=== PATIENT | male | born 1960 | race Hispanic/Latino ===

== ENCOUNTER → 2022-12-01 | Outpatient (CLI) | payer OTHER ==
[~2022-12-01] MED LIST: METO25TA6 PO; SITA1TAB6 PO
== END | disposition home or self-care (01) ==
LOC: OIH 11:19
PROVIDERS: ATTEND Family Medicine
DX: R93.1 Abnormal findings on diagnostic imaging of heart and coronary circulation (principal)
CPT/HCPCS: 75571

== ENCOUNTER 2023-02-15 14:54 | Emergency (ER) | payer BC, OTHER ==
[~2023-02-15] VITALS: Ht 162.6 cm; Wt 72.1 kg
[2023-02-15] MEDS ORDERED: KETOROLAC 60 MG VIAL (30MG/ML) IM ONE (17:00)
[2023-02-15 18:00] VITALS: BP 138/80; PULSE 102; RESP 19; O2SAT 97
[2023-02-15] MEDS ORDERED: METH4TAB3 PO (18:44)
[2023-02-15] MEDS ORDERED: CYCL5TAB PO (18:44)
[2023-02-15] MEDS ORDERED: ACET-2079 PO (18:44)
[2023-02-15] MEDS ORDERED: NAPR-1023 PO (18:44)
[2023-02-15] MEDS ORDERED: LIDO1ADH71 TP (18:44)
== END 2023-02-15 19:02 | disposition home or self-care (01) ==
LOC: EDH 14:54
DX: S33.5XXA Sprain of ligaments of lumbar spine, initial encounter (principal); E11.9 Type 2 diabetes mellitus without complications; I10 Essential (primary) hypertension; V89.2XXA Person injured in unspecified motor-vehicle accident, traffic, initial encounter; Y93.89 Activity, other specified; Y92.89 Other specified places as the place of occurrence of the external cause; Y99.8 Other external cause status
CPT/HCPCS: 99284; 72100; 96372; J1885

== ENCOUNTER 2024-12-09 13:50 | Emergency (ER) | payer BC ==
[~2024-12-09] VITALS: Ht 162.6 cm; Wt 67.1 kg
[~2024-12-09 13:50] MED LIST changes: +ACET-2079 PO; +CYCL5TAB3 PO; +LIDO1ADH71 TP; +METH4TAB3 PO; +NAPR-1194 PO
--- NOTE | 2024-12-09 14:09 | EKG ---
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
[2024-12-09 14:16] LABS: IMMATURE GRANULOCYTE ABSOLUTE 0.02 K/uL (0-1); NUCLEATED RED BLOOD CELLS 0.0 % (0.0-0.19); PLATELET COUNT (AUTO) 268 K/uL (130-400); RED BLOOD CELL COUNT(AUTO) 4.95 MIL/uL (4.50-6.20); RED CELL DISTRIBUTION WIDTH 13.1 % (11.0-15.5); WHITE BLOOD COUNT (AUTO) 7.4 K/uL (4.8-10.8)
--- NOTE | 2024-12-09 14:29 | ERN ---
ED Note History of Present Illness Stated Complaint: COUGH, BLOOD STREAKED SPUTUM Chief Complaint: Cough Time Seen by MD: 13:52 Dictation: Patient is a 64-year-old male coming in today with complaints of blood-tinged sputum without fever chills nausea vomiting started 2-3 days. He denies any history of tobacco abuse he saw his primary care doctor last week and told him about the same complaint and the doctor was more focused on the other concerns and did not say anything about his cough with the phlegm. He did suggest to the patient that maybe allergies only. Patient would like an appropriate opinion. Allergies: Coded Allergies: No Known Drug Allergies (Unverified Allergy, Unknown, 07/15/14) Home Meds Active Scripts Lidocaine (Lidocaine Pain Relief) 4 % Adh..patch, 1 EACH TP DAILY for 5 Days, #5 ADH.PATCH Prov:ROSSANA LEBLANC 02/15/23 Methylprednisolone (Medrol) 4 Mg Tab.ds.pk, 4 MG PO AD for 5 Days, #1 PACK Prov:ROSSANA LEBLANC 02/15/23 Cyclobenzaprine HCl (Cyclobenzaprine HCl) 5 Mg Tablet, 5 MG PO DAILYDINNER for 5 Days, #5 TAB Prov:ROSSANA LEBLANC 02/15/23 Naproxen (Naproxen) 500 Mg Tablet, 500 MG PO BID for 5 Days, #10 TAB Prov:ROSSANA LEBLANC 02/15/23 Acetaminophen with Codeine (Acetaminophen-Cod #3 Tablet) 300 Mg-30 Mg Tablet, 1 TAB PO Q4H PRN for S33.9XXA for 3 Days, #6 TAB Prov:ROSSANA LEBLANC 02/15/23 Reported Medications Metoprolol Tartrate (Metoprolol Tartrate) 25 Mg Tablet, 25 MG PO DAILY, TAB 07/15/14 Sitagliptin Phos/Metformin HCl (Janumet 50-1,000 mg Tablet) 1 Each Tablet, 1 EACH PO DAILY, TAB 07/15/14 Past Medical History Past Medical History: Diabetes-Type II, Hypertension Surgical History: None RN Note Reviewed/Agreed w/PFSH: Yes Review of System Dictation CONSTITUTIONAL: Negative except for HPI HEAD/FACE: Negative except for HPI EENT: Negative except for HPI RESPIRATORY: Negative except for HPI cough with blood-tinged phlegm GASTROINTESTINAL/ABDOMINAL: Negative except for HPI GENITOURINARY: Negative except for HPI MUSCULOSKELETAL: Negative except for HPI INTEGUMENTARY: Negative except for HPI NEUROLOGICAL/PSYCH: Negative except for HPI HEMATOLOGIC/LYMPHATIC: Negative except for HPI All Systems Negative, Except as noted above. 13 point review of systems assessed and all negative except for above. Initial Vital Sign VS Vital Signs Date Time Temp Pulse Resp B/P (MAP) Pulse Ox O2 Delivery O2 Flow Rate FiO2 12/09/24 13:51 98.1 83 16 150/76 99 Room Air 0 12/09/24 18:35 21 Physical Exam Dictation Vital Signs reviewed General Appearance: Alert, oriented x 3, no acute distress, well developed, nourished. 0/10 pain Head and Face: non-traumatic. Eyes: PERRL, pink conjunctivas, eyelid no trauma, anterior chamber with arcus senilis. Ears: Pinnas intact and no signs of trauma or erythema ear canals clear and no discharge TM no erythema Nose: No discharge, no bleeding. No bleeding Oropharynx: Mouth normal, tongue pink, pharynx clear,no erythema, tonsils no exudates, no abscesses noted, mucous membrane moist Neck: Supple, non-tender, no thyromegaly, no masses, no JVD, no bruits Breast:Deferred Chest:No tenderness, no crepitus, no paradoxical movement, no retractions Lungs:Clear, well-ventilated, symmetric, no rales, no wheezing, no rhonchi, no stridor, good breath sounds bilaterally no tachypnea no retractions Heart: Regular rate, regular rhythm, no murmur, no gallops Vascular: no peripheral edema, Abdomen: Soft, positive bowel sounds, nondistended, no guarding, nontender, no rebound, no masses no hepatomegaly, no splenomegaly, no Madrid's sign, no hernias. Rectal: Deferred Genital: Deferred Neurological: Normal speech, motor function intact, sensory function intact Musculoskeletal: Neck nontender, full range of motion, back nontender, full range of motion, Extremities: nontender, full range of motion Skin: Color pink, dry, no turgor, no rash, no lacerations, no abrasions, no contusions. Lymphatic: Deferred Results (Laboratory/Radiology) Laboratory/Radiology Laboratory Tests Test 12/09/24 14:05 12/09/24 15:15 White Blood Count 7.4 K/uL (4.8-10.8) Red Blood Count 4.95 MIL/uL (4.50-6.20) Hemoglobin 14.0 g/dL (14.0-18.0) Hematocrit 40.9 % (42-54) L Mean Corpuscular Volume 82.6 fL (79-99) Mean Corpuscular Hemoglobin 28.3 pg (27.0-33.0) Mean Corpuscular Hemoglobin Concent 34.2 g/dL (32.0-36.0) Red Cell Distribution Width 13.1 % (11.0-15.5) Platelet Count 268 K/uL (130-400) Mean Platelet Volume 9.8 fL (7.5-10.5) Immature Granulocyte % (Auto) 0.3 % (0-1) Neutrophils (%) (Auto) 58.7 % (40.0-77.0) Lymphocytes (%) (Auto) 29.9 % (21.0-51.0) Monocytes (%) (Auto) 8.1 % (3.0-13.0) Eosinophils (%) (Auto) 1.9 % (0.0-8.0) Basophils (%) (Auto) 1.1 % (0.0-5.0) Neutrophils # (Auto) 4.3 K/uL (1.8-7.7) Lymphocytes # (Auto) 2.2 K/uL (1.0-4.8) Monocytes # (Auto) 0.6 K/uL (0.1-1.0) Eosinophils # (Auto) 0.14 K/uL (0.00-0.70) Basophils # (Auto) 0.08 K/uL (0.00-0.20) Absolute Immature Granulocyte (auto 0.02 K/uL (0-1) Nucleated Red Blood Cells 0.0 % (0.0-0.19) Sodium Level 137 mmol/L (136-145) Potassium Level 4.0 mmol/L (3.5-5.1) Chloride Level 101 mmol/L (101-111) Carbon Dioxide Level 28 mmol/L (21-32) Blood Urea Nitrogen 16 mg/dL (7-18) Creatinine 0.9 mg/dL (0.5-1.3) Glomerular Filtration Rate Calc 97 mL/min (>90) Random Glucose 237 mg/dL (70-105) H Total Calcium 8.6 mg/dL (8.5-10.1) Troponin I High Sensitivity 10 ng/L (4-75) B-Type Natriuretic Peptide 50 pg/mL (0-100) SARS-CoV-2 Antigen (Rapid) PRESUMPTIVE NEGATIVE EXAM: CR Chest, 1 View. CLINICAL HISTORY: PERSISTENT COUGH FOR THE LAST 2-3 WEEKS COMPARISON: None provided. FINDINGS: LUNGS: The lungs show no infiltrate or other acute finding. PLEURAL SPACES: No pleural effusion or pneumothorax. MEDIASTINUM: The cardiomediastinal silhouette is within normal limits. BONES: No acute osseous abnormality. IMPRESSION: No acute cardiopulmonary pathology is evident. 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 ED Course ED Course Orders Procedure Category Date Status Time Covid19 (Sars Antigen LAB 12/09/24 Complete Rapid) 13:54 B-Type Natriuretic LAB 12/09/24 Complete Peptide 13:54 Cbc With Differential LAB 12/09/24 Complete 13:54 Chest 1vw RAD 12/09/24 Resulted 13:54 12 Lead Ekg Tracing- EKG 12/09/24 Resulted Technical 13:54 Troponin I High LAB 12/09/24 Complete Sensitivity 13:54 Basic Metabolic Panel LAB 12/09/24 Complete 13:54 Vital Signs Date Time Temp Pulse Resp B/P (MAP) Pulse Ox O2 Delivery O2 Flow Rate FiO2 12/09/24 18:35 98.2 85 16 143/80 98 Room Air* 0 21 12/09/24 13:51 98.1 83 16 150/76 99 Room Air 0 1845/PATIENT WILL BE DISCHARGED HOME WITH DIAGNOSIS OF VIRAL URI WITH COUGH. GIVEN TREATMENT FOR THE COUGH AND TOLD TO SEE HIS DOCTOR FOR FOLLOW UP. HEART Score Response (Comments) Value History: Low suspicion (0) 0 Age: 45-65yrs (+1) 1 Risk Factors: 1-2 risk factors (+1) 1 Initial Troponin: Normal limit (0) 0 Total 2 Medical Decision Making MDM MDM: DIFFERENTIAL DIAGNOSIS: PNEUMONIA/BRONCHITIS/SARS COVID/ELECTROLYTE IMBALANCE/DEHYDRATION/ACS/AMI RATIONALE: TESTS CONSIDERED AND ORDERED SECONDARY TO SHARED DECISION MAKING INCLUDE: SWABS/EKG/RADIOLOGY/LABS PREVIOUS OUTSIDE RECORDS REVIEWED: OLD ER VISITS. RISK OF COMPLICATION AND/OR MORBIDITY OR MORTALITY OF PATIENT MANAGEMENT: NONE MEDICATIONS-PER MEDICATION RECONCILIATION NEED FOR HOSPITALIZATION: PATIENT DOES NOT MEET CRITERIA FOR HOSPITALIZATION. NONE NEED FOR EMERGENCY MAJOR/MINOR SURGERY: NO THERE ARE NO SOCIAL CONCERNS WITH THIS PATIENT. PRESCRIPTION DRUG MANAGEMENT ALBUTEROL/TESSALON PRESCRIPTIONS WILL INCLUDE SYMPTOMATIC CARE PATIENT'S PRIOR EXTERNAL MEDICAL RECORDS FROM OTHER ER VISITS WERE REVIEWED BY ME INDICATED. PRIOR TESTING AND RESULTS FROM PREVIOUS VISITS WERE REVIEWED. PRIOR TESTS WERE TAKEN INTO ACCOUNT WITH MEDICAL DECISION MAKING AND RESOURCE UTILIZATION, INDEPENDENT HISTORIAN/HISTORIANS WERE USED TO OBTAIN COMPLETE MEDICAL HISTORY. I INDEPENDENTLY INTERPRETED THE TEST THAT WERE PERFORMED, RESULTS WERE REVIEWED BY ME AND CONSIDERED FINDINGS ON RADIOLOGY IF ORDERED. MEDICAL MANAGEMENT AND EXAMINATION INTERPRETATION DISCUSSIONS WERE HAD BY ME WITH OTHER QUALIFIED HEALTHCARE PROFESSIONALS INDICATED FOR THE PATIENT'S CARE. DX & DISP Disposition: Discharge Departure Impression: Primary Impression: Viral URI with cough Additional Impressions: Elevated brain natriuretic peptide (BNP) level, Uncontrolled diabetes mellitus Condition: Stable Scripts Albuterol Sulfate (Ventolin Hfa/Proventil Hfa/Proair Hfa) 90 Mcg Puff 2 PUFF IH Q4H for WHEEZING, #1 INHALER 0 Refills Prov: JENNIFER ELLIOTT SUPERVISOR [employer] PLATE PREPARATION 12/09/24 Benzonatate (Tessalon Perles) 100 Mg Cap 200 MG PO TID for cough, #60 CAP 0 Refills Prov: JENNIFER ELLIOTT SUPERVISOR [employer]ATE PREPARATION 12/09/24 Additional Instructions: FOLLOW-UP WITH PRIMARY CARE PROVIDER IN 1 TO 2 DAYS. TAKE MEDICATIONS D IRECTED HERE IN THE EMERGENCY ROOM. OKAY TO CONTINUE HOME MEDICATIONS UNLESS OTHERWISE DISCUSSED DURING YOUR VISIT IN THE EMERGENCY ROOM TODAY. RETURN TO YOUR NEAREST EMERGENCY ROOM IF SYMPTOMS WORSEN OR IF THERE IS NO IMPROVEMENT. CALL 911 IF YOU NEED IMMEDIATE ASSISTANCE. TAKE TYLENOL OR MOTRIN BUZB-AIL-AIFONYM NEEDED AND IF NO CONTRAINDICATIONS ARE PRESENT. INCREASE ORAL HYDRATION. A WOUND CULTURE OR URINE CULTURE WAS ORDERED HERE IN THE EMERGENCY ROOM DEPARTMENT PLEASE FOLLOW-UP WITH PRIMARY CARE PROVIDER AND ADVISE THEM TO GET REPEAT PORTS FROM OUR FACILITY. IF YOU HAD ANY ZABRINA WRAP/SPLINTS THAT WERE APPLIED HERE, PLEASE DO NOT REMOVE THEM UNTIL YOU SEE YOUR PRIMARY CARE OR SPECIALTY. USE ALBUTEROL INHALER EVERY 4 HOURS WHILE AWAKE FOR THE NEXT TWO DAYS. TAKE TESSALON PERLES DIRECTED FOR YOUR COUGH. INCREASE YOUR WATER INTAKE AND SEE YOUR PRIMARY CARE DOCTOR FOR FOLLOW UP. Referrals: ANNETTE MORRIS MD (PCP) I have reviewed the case, and I agree with, Diagnosis and Plan JENNIFER ELLIOTT [facility] Dec 09, 2024 14:29
[2024-12-09 14:34] LABS: CREATININE 0.9 mg/dL (0.5-1.3); GLOMERULAR FILTR. RATE CALC 97.0 mL/min (>90); GLUCOSE,RANDOM 237.0 mg/dL (70-105); SODIUM SERUM 137.0 mmol/L (136-145); UREA NITROGEN, BLOOD 16.0 mg/dL (7-18)
--- NOTE | 2024-12-09 15:00 | HMCIMG ---
EXAM: CR Chest, 1 View. CLINICAL HISTORY: PERSISTENT COUGH FOR THE LAST 2-3 WEEKS COMPARISON: None provided. FINDINGS: LUNGS: The lungs show no infiltrate or other acute finding. PLEURAL SPACES: No pleural effusion or pneumothorax. MEDIASTINUM: The cardiomediastinal silhouette is within normal limits. BONES: No acute osseous abnormality. IMPRESSION: No acute cardiopulmonary pathology is evident. /[place]
[2024-12-09] MEDS ORDERED: ALBUHFA IH (18:51)
[2024-12-09] MEDS ORDERED: BENZ-39 PO (18:51)
[2024-12-09 19:51] VITALS: BP 128/76; PULSE 80; RESP 16; TEMP 98.5; O2SAT 98
== END 2024-12-09 19:53 | disposition home or self-care (01) ==
LOC: EDH 13:50
DX: J06.9 Acute upper respiratory infection, unspecified (principal); B97.89 Other viral agents as the cause of diseases classified elsewhere; E11.65 Type 2 diabetes mellitus with hyperglycemia; R79.89 Other specified abnormal findings of blood chemistry; I10 Essential (primary) hypertension; Z20.822 Contact with and (suspected) exposure to COVID-19; Z79.84 Long term (current) use of oral hypoglycemic drugs; Z79.899 Other long term (current) drug therapy
CPT/HCPCS: 36415; 71045; 80048; 83880; 84484; 85025; 87426; 93005; 99284